=== PATIENT | female | born 1985 | race Hispanic/Latino ===

== ENCOUNTER 2016-11-12 15:01 | Emergency (ER) | payer MEDICAID ==
[2016-11-12 15:01] VITALS: BMI 27.4
[2016-11-12 15:24] VITALS: RESP 16
[2016-11-12] MEDS ORDERED: Sodium Chloride 0.9% 1,000 ML IV STA (15:50)
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
[2016-11-12 16:20] LABS: BASO % 0.3 % (0.0-2.0); EOS # 0.2 K/uL (0.0-0.7); EOS % 1.9 % (0.0-4.0); HEMATOCRIT 39.9 % (34.0-47.0); LYMPH # 1.8 K/uL (1.0-4.3); LYMPH % 17.8 % (20.0-40.0); MEAN CELL VOLUME 91.9 fl (81.0-99.0); MEAN CORPUSCULAR HEMOGLOBIN 31.2 pg (27.0-31.0); MEAN CORPUSCULAR HGB CONC 33.9 g/dL (33.0-37.0); MEAN PLATELET VOLUME 7.2 fl (7.2-11.7); MONO # 0.5 K/uL (0.0-0.8); MONO % 5.4 % (0.0-10.0); NEUT # 7.4 K/uL (1.8-7.0); NEUT % 74.6 % (50.0-75.0); RED CELL DISTRIBUTION WIDTH 12.4 % (11.5-14.5); WHITE BLOOD COUNT 9.9 K/uL (4.8-10.8)
[2016-11-12 16:23] LABS: ALB/GLOB RATIO 1.3 (1.0-2.1); ALKALINE PHOSPHATASE 94 U/L (38-126); ALT/SGPT 40 U/L (9-52); AST/SGOT 34 U/L (14-36); BILIRUBIN,TOTAL 0.8 mg/dl (0.2-1.3); BLOOD UREA NITROGEN 8 mg/dl (7-17); CALCIUM 9.3 mg/dL (8.4-10.2); CARBON DIOXIDE 27 mmol/L (22-30); CHLORIDE 100 mmol/L (98-107); GFR AFRICAN-AMERICAN > 60; GLUCOSE,RANDOM 92 mg/dL (65-105); SODIUM 140 mmol/l (132-148); TOTAL PROTEIN 8.5 G/DL (6.3-8.2)
[2016-11-12 16:25] LABS: POTASSIUM 4.1 MMOL/L (3.6-5.0)
[2016-11-12] MEDS ORDERED: Sodium Chloride 0.9% 50 ML IV ONE (16:51)
[2016-11-12] MEDS ORDERED: Iohexol 300 100 ML IJ ONE (16:51)
[2016-11-12 17:02] LABS: PARTIAL THROMBOPLASTIN TIME 27.2 Seconds (25.6-37.1)
--- NOTE | 2016-11-12 18:52 | CT ---
PROCEDURE: CT Abdomen and Pelvis with contrast HISTORY: lower abd pain and rectal bleeding COMPARISON: None. TECHNIQUE: Contrast dose: 100 cc of omnipaque Radiation dose: Total exam DLP = 747 mGy-cm. This CT exam was performed using one or more of the following dose reduction techniques: Automated exposure control, adjustment of the mA and/or kV according to patient size, and/or use of iterative reconstruction technique. FINDINGS: LOWER THORAX: Unremarkable. LIVER: Unremarkable. No gross lesion or ductal dilatation. GALLBLADDER AND BILE DUCTS: Unremarkable. PANCREAS: Unremarkable. No gross lesion or ductal dilatation. SPLEEN: Unremarkable. ADRENALS: Unremarkable. No mass. KIDNEYS AND URETERS: Unremarkable. No hydronephrosis. No solid mass. VASCULATURE: Unremarkable. No aortic aneurysm. BOWEL: Unremarkable. No obstruction. No gross mural thickening. APPENDIX: Normal appendix. PERITONEUM: Unremarkable. No free fluid. No free air. LYMPH NODES: Unremarkable. No enlarged lymph nodes. BLADDER: Unremarkable. REPRODUCTIVE: Unremarkable. BONES: No acute fracture. OTHER FINDINGS: None. IMPRESSION: Unremarkable contrast enhanced CT of the abdomen and pelvis.
[2016-11-12] MEDS ORDERED: cefTRIAXone (Rocephin) 250 mg Inj IVPB ONE (19:00)
[2016-11-12] MEDS ORDERED: cefTRIAXone (Rocephin) 250 mg Inj ONE (19:39)
[2016-11-12 19:52] VITALS: BP 122/76; PULSE 82; TEMP 98.2
[2016-11-12 21:02] VITALS: O2SAT 100
--- NOTE | 2016-11-13 08:50 | US ---
HISTORY: pelvic pain COMPARISON: None available. TECHNIQUE: Transvaginal FINDINGS: UTERUS: Measures 7.0 x 2.5 x 4.4 cm. Normal in size and appearance. No fibroid or other mass lesion seen. ENDOMETRIUM: Measures to mm in diameter. Unremarkable. CERVIX: No cervical abnormality identified. RIGHT OVARY: Measures 3.6 x 2.6 x 3.7 cm. No solid mass. Normal flow. LEFT OVARY: Measures 3.6 x 1.9 x 2.5 cm. No solid mass. Normal flow. FREE FLUID: No significant free fluid noted. OTHER FINDINGS: None. IMPRESSION: Unremarkable pelvic ultrasound. Preliminary interpretation of this examination was reported by [facility] at 9:17 p.m. on 11/12/2016. There is concurrence of this report with the preliminary interpretation.
== END 2016-11-12 19:52 | disposition home or self-care (01) ==
LOC: H.ER 15:01
DX: K62.5 Hemorrhage of anus and rectum (principal); K62.89 Other specified diseases of anus and rectum
CPT/HCPCS: 74177; 76830; 80053; 81025; 84702; 85025; 85610; 85730; 87491; 87591; 96361; 96365; 96375; 99284; J0696; J2405; J7040; Q9967

== ENCOUNTER 2016-12-30 01:06 | Emergency (ER) | payer MEDICAID ==
[2016-12-30 01:07] VITALS: BMI 27.4
[2016-12-30 01:37] VITALS: RESP 16
[2016-12-30 04:06] LABS: URINE BACTERIA RARE (<OCC); URINE BILIRUBIN NEGATIVE (NEGATIVE); URINE BLOOD NEGATIVE (NEGATIVE); URINE COLOR YELLOW (YELLOW); URINE GLUCOSE (UA) NEG (Normal); URINE KETONE NEGATIVE (NEGATIVE); URINE LEUKOCYTE ESTERASE SMALL Leu/uL (Negative); URINE PROTEIN NEGATIVE (NEGATIVE); URINE UROBILINOGEN 0.2-1.0 mg/dL (0.2-1.0)
[2016-12-30 04:08] LABS: RBC URINE 2 /hpf (0-3); WBC URINE 3 /hpf (0-5)
--- NOTE | 2016-12-30 04:19 | ED PDOC ---
HPI: Female Pain Time Seen by Provider: 12/30/16 02:46 Chief Complaint (Nursing): Female Genitourinary Chief Complaint (Provider): female vaginal discharge History Per: Patient History/Exam Limitations: no limitations Associated Symptoms: denies: Fever, Chills, Nausea, Vomiting, Diarrhea, Loss Of Appetite, Back Pain, Chest Pain, Constipation, Urinary Symptoms Additional Complaint(s): 31yo F in ED for eval vaginal d/c x1 week states she took fluconzole 150mg twice. states she noted white/yellow d/c form her vagina with itching vaginal burning. no abd pain no back pain no fever no chills. Abnormal Vaginal Bleeding: No Past Medical History Reviewed: Historical Data, Nursing Documentation, Vital Signs Vital Signs: Last Vital Signs Temp 98.9 F 12/30/16 01:34 Pulse 85 12/30/16 01:34 Resp 16 12/30/16 01:34 BP 123/77 12/30/16 01:34 Pulse Ox 94 L 12/30/16 01:34 - Medical History PMH: No Chronic Diseases Denies: Chronic Kidney Disease - Family History Family History: States: Unknown Family Hx, Hypertension - Immunization History Hx Tetanus Toxoid Vaccination: No Hx Influenza Vaccination: No Hx Pneumococcal Vaccination: No - Home Medications Home Medications: Ambulatory Orders Medication Instructions Recorded metroNIDAZOLE [Flagyl] 500 mg PO TID #30 tab 11/12/16 Clotrimazole 1% Vaginal [Lotrimin 1 applic VG HS #1 tube 12/30/16 1% Vaginal] metroNIDAZOLE [Flagyl] 500 mg PO BID #14 tab 12/30/16 - Allergies Allergies/Adverse Reactions: Allergies Allergy/AdvReac Type Severity Reaction Status Date / Time No Known Allergies Allergy Verified 01/12/16 11:28 Review of Systems ROS Statement: Except As Marked, All Systems Reviewed And Found Negative Constitutional: Negative for: Fever, Chills Genitourinary Female: Positive for: Vaginal Discharge Physical Exam - Reviewed Nursing Documentation Reviewed: Yes Vital Signs Reviewed: Yes - Physical Exam Appears: Positive for: Well, Non-toxic, No Acute Distress Skin: Positive for: Normal Color, Warm, DRY Cardiovascular/Chest: Positive for: Regular Rate, Rhythm Respiratory: Positive for: CNT, Normal Breath Sounds Gastrointestinal/Abdominal: Positive for: Normal Exam, Bowel Sounds, Soft. Negative for: Tenderness Neurologic/Psych: Positive for: Alert, Oriented - ECG O2 Sat by Pulse Oximetry: 94 Medical Decision Making Medical Decision Making: pt most likely with yeast infection will treat with anitfungal with f.u with obgyn Disposition - Clinical Impression Clinical Impression: Vaginal discharge Counseled Patient/Family Regarding: Studies Performed, Diagnosis, Need For Followup, Rx Given - Disposition Referrals: Manjit De La Rosa MD [Primary Care Provider] - Disposition: Routine/Home Disposition Time: 04:25 Condition: STABLE Prescriptions: Clotrimazole 1% Vaginal [Lotrimin 1% Vaginal] 1 applic VG HS #1 tube metroNIDAZOLE [Flagyl] 500 mg PO BID #14 tab Instructions: Vulvovaginal Candidiasis (ED)
[2016-12-30 04:41] VITALS: BP 132/71; PULSE 83; TEMP 98.7; O2SAT 98
== END 2016-12-30 04:43 | disposition home or self-care (01) ==
LOC: H.ER 01:06
DX: N89.8 Other specified noninflammatory disorders of vagina (principal)

== ENCOUNTER 2017-01-27 08:53 | Emergency (ER) | payer MEDICAID ==
[2017-01-27 08:57] VITALS: BMI 26.6
[2017-01-27 08:59] VITALS: BP 113/62; PULSE 84; TEMP 96; O2SAT 96
[2017-01-27 10:08] LABS: RBC URINE 27 /hpf (0-3); URINE BACTERIA RARE (<OCC); URINE BILIRUBIN NEGATIVE (NEGATIVE); URINE BLOOD SMALL (NEGATIVE); URINE COLOR YELLOW (YELLOW); URINE GLUCOSE (UA) NEG (Normal); URINE KETONE NEGATIVE (NEGATIVE); URINE LEUKOCYTE ESTERASE LARGE Leu/uL (Negative); URINE PROTEIN 30 mg/dL (NEGATIVE); URINE UROBILINOGEN 0.2-1.0 mg/dL (0.2-1.0); WBC URINE 45 /hpf (0-5)
--- NOTE | 2017-01-27 10:09 | ED PDOC ---
HPI: Female Pain Time Seen by Provider: 01/27/17 09:08 Chief Complaint (Nursing): Female Genitourinary Chief Complaint (Provider): Female Genitourinary History Per: Patient History/Exam Limitations: no limitations Onset/Duration Of Symptoms: Days (x3) Current Symptoms Are (Timing): Still Present Quality Of Discomfort: Burning Associated Symptoms: Fever Additional Complaint(s): Kandis Cook is a 32 year old female, with no past medical history, who present to the emergency department complaining of a cold sore in her lip, and yeast infection associated with itchiness, discharge, and burning sensation onset 3 days ago. Patient reports that 3 days ago she had a random fever, which she took down on her own. However, yesterday patient began feeling an itchy and burning sensation in her lip before the cold sore appeared. Patient reports a history of cold sores and states they will appear once every winter. She states that her aunt will get cold sores all the time. Patient also has a history of frequent yeast infections. Last time she was treated for it was 3 weeks ago. No further medical complaints. PMD: None provided. Past Medical History Reviewed: Historical Data, Nursing Documentation, Vital Signs Vital Signs: Last Vital Signs Temp 96 F L 01/27/17 08:58 Pulse 84 01/27/17 08:58 Resp 18 01/27/17 08:58 BP 113/62 01/27/17 08:58 Pulse Ox 96 01/27/17 08:58 - Medical History PMH: Denies: Chronic Kidney Disease - Family History Family History: States: Unknown Family Hx, Hypertension - Social History Current smoker - smoking cessation education provided: No Alcohol: None Drugs: Denies - Immunization History Hx Tetanus Toxoid Vaccination: No Hx Influenza Vaccination: No Hx Pneumococcal Vaccination: No - Home Medications Home Medications: Ambulatory Orders Medication Instructions Recorded metroNIDAZOLE [Flagyl] 500 mg PO TID #30 tab 11/12/16 Clotrimazole 1% Vaginal [Lotrimin 1 applic VG HS #1 tube 12/30/16 1% Vaginal] metroNIDAZOLE [Flagyl] 500 mg PO BID #14 tab 12/30/16 Fluconazole 150 mg PO DAILY #2 tablet 01/27/17 Nitrofurantoin Macrocrystals 100 mg PO BID #14 cap 01/27/17 [Macrobid] Valacyclovir HCl [Valtrex] 1 gm PO BID #4 tablet 01/27/17 - Allergies Allergies/Adverse Reactions: Allergies Allergy/AdvReac Type Severity Reaction Status Date / Time No Known Allergies Allergy Verified 01/12/16 11:28 Review of Systems ROS Statement: Except As Marked, All Systems Reviewed And Found Negative Constitutional: Positive for: Fever Genitourinary Female: Positive for: Dysuria, Vaginal Discharge Skin: Positive for: Other (cold sore in bottom lip) Physical Exam - Reviewed Nursing Documentation Reviewed: Yes Vital Signs Reviewed: Yes - Physical Exam Appears: Positive for: Well, Non-toxic, No Acute Distress Head Exam: Positive for: ATRAUMATIC, NORMAL INSPECTION, NORMOCEPHALIC Skin: Positive for: Normal Color, Warm, Dry Eye Exam: Positive for: Normal appearance, EOMI, PERRL ENT: Positive for: Other (left lower lip early herpetic lesion, erythematous at base and vesicles) Neck: Positive for: Normal, Painless ROM, Supple Cardiovascular/Chest: Positive for: Regular Rate, Rhythm. Negative for: Murmur Respiratory: Positive for: Normal Breath Sounds. Negative for: Respiratory Distress Gastrointestinal/Abdominal: Positive for: Normal Exam, Bowel Sounds, Soft. Negative for: Tenderness, Guarding, Rebound Back: Positive for: Normal Inspection. Negative for: L CVA Tenderness, R CVA Tenderness Extremity: Positive for: Normal ROM. Negative for: Deformity, Swelling Neurologic/Psych: Positive for: Alert, Oriented - ECG O2 Sat by Pulse Oximetry: 96 (RA) Pulse Ox Interpretation: Normal Medical Decision Making Medical Decision Making: Initial Impression: oral herpes, UTI Initial Plan: --Urine Culture --Urinalysis --reevaluation 1150 -Upon provider evaluation patient is medically stable, and requires no further treatment in the ED at this time. Patient will be discharged home with diagnosis of UTI, oral herpes, and aren infection. Counseling was provided and all questions were answered regarding diagnosis and need for follow up. There is agreement to discharge plan. Return if symptoms persist or worsen. Scribe Attestation: Documented by Deepak Wylie, acting as a scribe for Ge Moran MD Provider Scribe Attestation: All medical record entries made by the Scribe were at my direction and personally dictated by me. I have reviewed the chart and agree that the record accurately reflects my personal performance of the history, physical exam, medical decision making, and the department course for this patient. I have also personally directed, reviewed, and agree with the discharge instructions and disposition. Disposition - Clinical Impression Clinical Impression: UTI (urinary tract infection), Aren infection, Herpes labialis - Disposition Referrals: [facility] [Outside] [facility] [Outside] [facility] [Outside] Disposition Time: 11:50 Condition: IMPROVED Additional Instructions: follow up with your primary doctor in 1-2 days return to the ED with any worsening or concerning symptoms Prescriptions: Fluconazole 150 mg PO DAILY #2 tablet Nitrofurantoin Macrocrystals [Macrobid] 100 mg PO BID #14 cap Valacyclovir HCl [Valtrex] 1 gm PO BID #4 tablet Instructions: Urinary Tract Infection in Women (ED), Oral Herpes Simplex Virus Infections (ED), Skin Yeast Infection (ED) Forms: [employer] (Sinhala)
[2017-01-27 12:22] VITALS: RESP 16
== END 2017-01-27 12:09 | disposition home or self-care (01) ==
LOC: H.ER 08:53
DX: B00.1 Herpesviral vesicular dermatitis (principal); B37.9 Candidiasis, unspecified; N39.0 Urinary tract infection, site not specified

== ENCOUNTER 2017-04-28 17:32 | Emergency (ER) | payer MEDICAID ==
[2017-04-28 17:32] VITALS: BMI 26.1
[2017-04-28 18:16] VITALS: BP 123/76; PULSE 90; RESP 16; TEMP 98.3; O2SAT 98
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
--- NOTE | 2017-04-29 14:35 | CT ---
PROCEDURE: CT ORBITS WITHOUT CONTRAST. HISTORY: right orbit injury COMPARISON: None available. TECHNIQUE: Axial CT images of the orbits were obtained. Coronal and sagittal reformats were generated. Radiation dose: Total exam DLP = 721.31 mGy-cm. This CT exam was performed using one or more of the following dose reduction techniques: Automated exposure control, adjustment of the mA and/or kV according to patient size, and/or use of iterative reconstruction technique. FINDINGS: RIGHT ORBIT: RIGHT BONY ORBIT: Normal. RIGHT INTRAORBITAL STRUCTURES: Globe: Normal. Extraocular muscles: Normal. Post septal space: Normal. Optic Nerve: Normal. Lacrimal Apparatus: Normal. RIGHT PRESEPTAL SOFT TISSUES: Mild infra and lateral periorbital soft tissue edema is appreciated. LEFT ORBIT: LEFT BONY ORBIT: Normal. LEFT INTRAORBITAL STRUCTURES: Globe: Normal. Extraocular muscles: Normal. Post septal space: Normal Optic Nerve: Normal. . Lacrimal Apparatus: Normal. LEFT PRESEPTAL SOFT TISSUES: Normal. OTHER: None. IMPRESSION: Limited right periorbital edema without fracture. No postseptal edema identified. Bilateral orbits appear otherwise unremarkable.
== END 2017-04-28 20:09 | disposition home or self-care (01) ==
LOC: H.ER 17:32
DX: S00.83XA Contusion of other part of head, initial encounter (principal); W20.8XXA Other cause of strike by thrown, projected or falling object, initial encounter